=== PATIENT | male | born 1960 | race Caucasian/White ===

== ENCOUNTER 2017-11-29 14:17 | Emergency (ER) | payer OTHER ==
[2017-11-29 15:45] LABS: ALT 37 U/L (21-72); AST 26 U/L (17-59); Albumin 4.3 g/dL (3.5-5.0); Alkaline Phosphatase 84 U/L (38-126); Anion Gap 13 mmol/L; Basophils # (A) 0.1 k/uL (0-0.2); Basophils % (A) 1 %; Blood Urea Nitrogen 20 mg/dL (9-20); Calcium 10.2 mg/dL (8.4-10.2); Carbon Dioxide 23 mmol/L (22-30); Chloride 106 mmol/L (98-107); Eosinophils # (A) 0.3 k/uL (0-0.7); Eosinophils % (A) 3 %; Glucose 106 mg/dL (74-99); HGB 14.8 gm/dL (13.0-17.5); Lymphocytes # (A) 1.2 k/uL (1.0-4.8); Lymphocytes % (A) 12 %; MCH 29.6 pg (25.0-35.0); MCHC 32.9 g/dL (31.0-37.0); MCV 89.9 fL (80.0-100.0); Monocytes # (A) 0.5 k/uL (0-1.0); Monocytes % (A) 5 %; Neutrophils # (A) 8.1 k/uL (1.3-7.7); Neutrophils % (A) 79 %; Platelet Count 317 k/uL (150-450); RBC 5.01 m/uL (4.30-5.90); RDW 13.5 % (11.5-15.5); Sodium 142 mmol/L (137-145); Total Bilirubin 0.2 mg/dL (0.2-1.3); Total Protein 7.1 g/dL (6.3-8.2); WBC 10.2 k/uL (3.8-10.6)
[2017-11-29 15:46] LABS: Prothrombin Time 9.8 sec (9.0-12.0)
[2017-11-29 15:54] LABS: Creatine Kinase 135 U/L (55-170)
[2017-11-29 16:02] LABS: Partial Thromboplastin Time 20.9 sec (22.0-30.0)
[2017-11-29 16:04] VITALS: RESP 18
--- NOTE | 2017-11-29 16:09 | XR ---
EXAMINATION TYPE: XR chest 2V DATE OF EXAM: 11/29/2017 COMPARISON: None HISTORY: 57-year-old male difficulty breathing TECHNIQUE: PA and lateral views FINDINGS: Heart normal size. Mild elongation of the thoracic aorta. Pulmonary vasculature within normal limits. Stringy atelectasis in the lower lungs. No consolidation or pleural effusion. IMPRESSION: No acute cardiopulmonary process.
[2017-11-29 16:24] LABS: Creatine Kinase MB 1.8 ng/mL (0.0-2.4); Troponin I <0.012 ng/mL (0.000-0.034)
--- NOTE | 2017-11-29 16:28 | ED ---
SOB HPI - General Source: patient Mode of arrival: wheelchair Limitations: no limitations <Mark Pat - Last Filed: 11/29/17 17:39> <Jonathan Farias - Last Filed: 11/29/17 19:36> - General Chief Complaint: Shortness of Breath Stated Complaint: Chest Pain Time Seen by Provider: 11/29/17 15:34 - History of Present Illness Initial Comments: This is a 57-year-old male with a history of smoking who recently quit August 2017 who presents emergency department for shortness of breath for the last couple of weeks. He states that it is worse with exertion. It is better with rest. He states that he has associated lightheadedness when this happens. He denies any chest pains. Denies any cough. He states he just feels very "woozy oh. He states he also feels very anxious about this. He states that he used to be old oh walk and not get short of breath however over the last 2 weeks is been very significant. He does admit to feeling some numbness and tingling in his left leg however did not notice any swelling there. He states he does sit for multiple hours a day in his chair at home. He denies any fevers or chills. No chest pain at all. No other acute complaints. (Mark Pat) - Related Data Home Medications Medication Instructions Recorded Confirmed Esomeprazole Magnesium [NexIUM 20 mg PO Q48H 11/29/17 11/29/17 24Hr] Previous Rx's Medication Instructions Recorded Albuterol Inhaler [Ventolin Hfa 1 - 2 puff INHALATION Q6HR PRN #1 11/29/17 Inhaler] inhaler predniSONE 50 mg PO DAILY #5 tab 11/29/17 Allergies Allergy/AdvReac Type Severity Reaction Status Date / Time No Known Allergies Allergy Verified 11/29/17 16:47 Review of Systems ROS Other: All systems not noted in ROS Statement are negative. <Mark Pat - Last Filed: 11/29/17 17:39> ROS Other: All systems not noted in ROS Statement are negative. <Jonathan Farias - Last Filed: 11/29/17 19:36> ROS Statement: Those systems with pertinent positive or pertinent negative responses have been documented in the HPI. Past Medical History Past Medical History: GERD/Reflux Additional Past Medical History / Comment(s): "white coat syndrome" History of Any Multi-Drug Resistant Organisms: None Reported Past Surgical History: No Surgical Hx Reported Past Psychological History: Anxiety Smoking Status: Former smoker Past Alcohol Use History: None Reported Past Drug Use History: Marijuana <Mark Pat - Last Filed: 11/29/17 17:39> General Exam Limitations: no limitations <Mark Pat - Last Filed: 11/29/17 17:39> <Jonathan Farias - Last Filed: 11/29/17 19:36> - General Exam Comments Initial Comments: Constitutional: Awake alert Appears comfortable Head: Normocephalic atraumatic Eyes: no conjunctival injection No scleral icterus EOMI Neck: No JVD Supple Heart: Regular rate rhythm normal S1-S2 no murmurs Lungs: Clear to auscultation bilaterally No wheezing No rales Abdomen: Soft nondistended nontender Extremities: Non edematous, left leg seems slightly more swollen than the right and has a little bit of warmth to it without erythema DP pulses intact Radial pulses intact Neuro: A&Ox3 No focal neurologic deficits Psych: Appropriate mood and affect (Mark Pat) Course <Mark Pat - Last Filed: 11/29/17 17:39> <Jonathan Farias - Last Filed: 11/29/17 19:36> Vital Signs 11/29/17 11/29/17 11/29/17 14:25 16:02 17:31 Temperature 97.9 F 98.7 F Pulse Rate 102 H 90 82 Respiratory 20 18 18 Rate Blood Pressure 151/88 146/83 150/91 O2 Sat by Pulse 97 97 95 Oximetry 11/29/17 19:00 Temperature 98.2 F Pulse Rate 67 Respiratory 18 Rate Blood Pressure 152/97 O2 Sat by Pulse 95 Oximetry - Reevaluation(s) Reevaluation #1: 11/29/17 16:30 I ambulated the patient around the department and he dropped his oxygen saturation to 92% however did not go lower. Upon rest and return back up to 97 or 98% (Mark Pat) Reevaluation #2: 11/29/17 16:31 EKG showing normal sinus rhythm. 99. No abnormal ST segment changes or T-wave inversions. QTC is 441. Other intervals normal. No ectopy. (Mark Pat) Medical Decision Making - Lab Data Result diagrams: 11/29/17 15:26 11/29/17 15:26 <Mark Pat - Last Filed: 11/29/17 17:39> - Lab Data Result diagrams: 11/29/17 15:26 11/29/17 15:26 - Radiology Data Radiology results: report reviewed (I did review the imaging and report no acute findings.), image reviewed <Jnoathan Farias - Last Filed: 11/29/17 19:36> - Medical Decision Making Patient is feeling better at this time I did discuss findings with him and his patient will be discharged the presentation is consistent with a COPD exacerbation he had just quit smoking recently he does work in a machine shop. ( Jonathan Farias) - Lab Data Lab Results 11/29/17 11/29/17 11/29/17 Range/Units 15:26 15:26 15:26 WBC 10.2 (3.8-10.6) k/uL RBC 5.01 (4.30-5.90) m/uL Hgb 14.8 (13.0-17.5) gm/dL Hct 45.0 (39.0-53.0) % MCV 89.9 (80.0-100.0) fL MCH 29.6 (25.0-35.0) pg MCHC 32.9 (31.0-37.0) g/dL RDW 13.5 (11.5-15.5) % Plt Count 317 (150-450) k/uL Neutrophils % 79 % Lymphocytes % 12 % Monocytes % 5 % Eosinophils % 3 % Basophils % 1 % Neutrophils # 8.1 H (1.3-7.7) k/uL Lymphocytes # 1.2 (1.0-4.8) k/uL Monocytes # 0.5 (0-1.0) k/uL Eosinophils # 0.3 (0-0.7) k/uL Basophils # 0.1 (0-0.2) k/uL PT (9.0-12.0) sec INR (<1.2) APTT (22.0-30.0) sec D-Dimer (<0.60) mg/L FEU Sodium 142 (137-145) mmol/L Potassium 4.0 (3.5-5.1) mmol/L Chloride 106 (98-107) mmol/L Carbon Dioxide 23 (22-30) mmol/L Anion Gap 13 mmol/L BUN 20 (9-20) mg/dL Creatinine 0.88 (0.66-1.25) mg/dL Est GFR (MDRD) Af Amer >60 (>60 ml/min/1.73 sqM) Est GFR (MDRD) Non-Af >60 (>60 ml/min/1.73 sqM) Glucose 106 H (74-99) mg/dL Calcium 10.2 (8.4-10.2) mg/dL Total Bilirubin 0.2 (0.2-1.3) mg/dL AST 26 (17-59) U/L ALT 37 (21-72) U/L Alkaline Phosphatase 84 (38-126) U/L Total Creatine Kinase 135 (55-170) U/L CK-MB (CK-2) 1.8 (0.0-2.4) ng/mL CK-MB (CK-2) Rel Index 1.3 Troponin I <0.012 (0.000-0.034) ng/mL NT-Pro-B Natriuret Pep pg/mL Total Protein 7.1 (6.3-8.2) g/dL Albumin 4.3 (3.5-5.0) g/dL 11/29/17 11/29/17 11/29/17 Range/Units 15:26 15:26 15:26 WBC (3.8-10.6) k/uL RBC (4.30-5.90) m/uL Hgb (13.0-17.5) gm/dL Hct (39.0-53.0) % MCV (80.0-100.0) fL MCH (25.0-35.0) pg MCHC (31.0-37.0) g/dL RDW (11.5-15.5) % Plt Count (150-450) k/uL Neutrophils % % Lymphocytes % % Monocytes % % Eosinophils % % Basophils % % Neutrophils # (1.3-7.7) k/uL Lymphocytes # (1.0-4.8) k/uL Monocytes # (0-1.0) k/uL Eosinophils # (0-0.7) k/uL Basophils # (0-0.2) k/uL PT 9.8 (9.0-12.0) sec INR 1.0 (<1.2) APTT 20.9 L (22.0-30.0) sec D-Dimer 0.76 H (<0.60) mg/L FEU Sodium (137-145) mmol/L Potassium (3.5-5.1) mmol/L Chloride (98-107) mmol/L Carbon Dioxide (22-30) mmol/L Anion Gap mmol/L BUN (9-20) mg/dL Creatinine (0.66-1.25) mg/dL Est GFR (MDRD) Af Amer (>60 ml/min/1.73 sqM) Est GFR (MDRD) Non-Af (>60 ml/min/1.73 sqM) Glucose (74-99) mg/dL Calcium (8.4-10.2) mg/dL Total Bilirubin (0.2-1.3) mg/dL AST (17-59) U/L ALT (21-72) U/L Alkaline Phosphatase (38-126) U/L Total Creatine Kinase (55-170) U/L CK-MB (CK-2) (0.0-2.4) ng/mL CK-MB (CK-2) Rel Index Troponin I (0.000-0.034) ng/mL NT-Pro-B Natriuret Pep 33 pg/mL Total Protein (6.3-8.2) g/dL Albumin (3.5-5.0) g/dL Disposition <Mark Pat - Last Filed: 11/29/17 17:39> <Jonathan Farias - Last Filed: 11/29/17 19:36> Clinical Impression: Shortness of breath, Acute exacerbation of chronic obstructive airways disease Disposition: HOME SELF-CARE Condition: Stable Instructions: Dyspnea (ED) Prescriptions: Albuterol Inhaler [Ventolin Hfa Inhaler] 1 - 2 puff INHALATION Q6HR PRN #1 inhaler PRN Reason: Shortness Of Breath predniSONE 50 mg PO DAILY #5 tab Referrals: None,Stated [Primary Care Provider] - 1-2 days Mert Hernandez DO [Doctor of Osteopathic Medicine] - 1-2 days
[2017-11-29] MEDS ORDERED: RX INFO: IV CONTRAST WAS GIVEN 1 EACH MISC MISCELLANE PRN (16:43)
--- NOTE | 2017-11-29 16:50 | US ---
EXAMINATION TYPE: US venous doppler duplex LE BI DATE OF EXAM: 11/29/2017 4:42 PM COMPARISON: NONE CLINICAL HISTORY: Pain. SIDE PERFORMED: bilateral TECHNIQUE: The lower extremity deep venous system is examined utilizing real time linear array sonog keo with graded compression, doppler sonography and color-flow sonography. VESSELS IMAGED: External Iliac Vein (EIV) Common Femoral Vein Deep Femoral Vein Greater Saphenous Vein * Femoral Vein Popliteal Vein Small Saphenous Vein * Proximal Calf Veins (* superficial vessels) Right Leg: Negative for DVT Left Leg: Negative for DVT Grayscale, color doppler, spectral doppler imaging performed of the deep veins of the bilateral lower extremities. There is normal flow, compressibility, vascular waveforms. IMPRESSION: No ultrasound evidence for acute DVT in either lower extremity.
--- NOTE | 2017-11-29 19:04 | CT ---
EXAMINATION TYPE: CT angio chest DATE OF EXAM: 11/29/2017 6:30 PM COMPARISON: NONE HISTORY: Shortness of breath x several weeks. CT DLP: 656 mGycm Automated exposure control for dose reduction was used. CONTRAST: CTA scan of the thorax is performed with IV Contrast, patient injected with 100 mL of Omnipaque 350, pulmonary embolism protocol. . FINDINGS: There are 3-D post processed images. The lungs are clear of infiltrate. There is no evidence of a pulmonary mass. Heart size is normal. Th ere is no pleural effusion. There is no pericardial effusion. I see no filling defects in the pulmonary arteries. There is no evidence of aortic aneurysm or dissec tion. There is no pericardial effusion. There is no mediastinal adenopathy. The bony thorax is intact . There are bilateral 1.5 cm bronchial lymph nodes. IMPRESSION: NONSPECIFIC BRONCHIAL LYMPH NODES. NO EVIDENCE OF PULMONARY EMBOLISM.
[2017-11-29 19:06] VITALS: PULSE 67
[2017-11-29 19:53] VITALS: BP 149/63; TEMP 97
== END 2017-11-29 19:53 | disposition home or self-care (01) ==
LOC: EC 14:17
DX: J44.1 Chronic obstructive pulmonary disease with (acute) exacerbation (principal); K21.9 Gastro-esophageal reflux disease without esophagitis; Z87.891 Personal history of nicotine dependence; Z79.899 Other long term (current) drug therapy
CPT/HCPCS: 36415; 93005; 85379; 83880; 80053; 82550; 82553; 84484; 85025; 85610; 85730; 71046; 93970; 71275; 99285; Q9967

== ENCOUNTER 2018-05-03 16:11 | Emergency (ER) | payer OTHER ==
--- NOTE | 2018-05-03 16:37 | ED ---
General Adult HPI - General Chief complaint: Anxiety Stated complaint: chest pain Time Seen by Provider: 05/03/18 16:14 Source: EMS, RN notes reviewed, old records reviewed Mode of arrival: EMS Limitations: no limitations - History of Present Illness Initial comments: 58 yo male presents for evaluation of chest pain and anxiety. Patient states that over the past 4 days he has had left-sided chest pain, he's been lightheaded, and he has had some diaphoresis. He states his symptoms have been worse with exertion. He has no known history of coronary artery disease. He has been attributing his symptoms to anxiety which is dull with for the past 6 months. He did call his physician who recommended taking 2 of his antianxiety medication doses. Patient's are concerning for CAD. He has had no cardiac workup in the past. He is a current smoker. Patient reported shortness of breath with this episode as well. No cough no fever. - Related Data Home Medications Medication Instructions Recorded Confirmed Esomeprazole Magnesium [NexIUM 20 mg PO Q48H 11/29/17 05/03/18 24Hr] Aspirin [Adult Low Dose Aspirin EC] 81 mg PO ONCE 05/03/18 05/03/18 Sertraline [Zoloft] 25 mg PO DAILY 05/03/18 05/03/18 Allergies Allergy/AdvReac Type Severity Reaction Status Date / Time No Known Allergies Allergy Verified 05/03/18 16:54 Review of Systems ROS Statement: Those systems with pertinent positive or pertinent negative responses have been documented in the HPI. ROS Other: All systems not noted in ROS Statement are negative. Past Medical History Past Medical History: GERD/Reflux Additional Past Medical History / Comment(s): "white coat syndrome" History of Any Multi-Drug Resistant Organisms: None Reported Past Surgical History: No Surgical Hx Reported Past Psychological History: Anxiety Smoking Status: Current some day smoker Past Alcohol Use History: None Reported Past Drug Use History: Marijuana General Exam Limitations: no limitations General appearance: alert, in no apparent distress Head exam: Present: atraumatic, normocephalic Eye exam: Present: normal appearance, PERRL Neck exam: Present: normal inspection. Absent: tenderness, meningismus Respiratory exam: Present: normal lung sounds bilaterally. Absent: respiratory distress, wheezes Cardiovascular Exam: Present: regular rate, normal rhythm GI/Abdominal exam: Present: soft. Absent: distended, tenderness Extremities exam: Present: normal inspection, normal capillary refill. Absent: pedal edema, calf tenderness Neurological exam: Present: alert, oriented X3 Psychiatric exam: Present: normal affect, normal mood Skin exam: Present: warm, intact, diaphoretic Course Vital Signs 05/03/18 16:15 Temperature 98.0 F Pulse Rate 81 Respiratory 18 Rate Blood Pressure 145/86 O2 Sat by Pulse 97 Oximetry EKG Findings - EKG Comments: EKG Findings:: EKG: Normal sinus rhythm, nonspecific T-wave abnormality, rate of 75, MN interval 154, QRS duration 90, QTC [address] segment elevation or depression Medical Decision Making - Medical Decision Making 58 yo male presenting with what he believes is anxiety, is having some left- sided chest pain as well as shortness of breath and diaphoresis. Patient's history is concerning for CAD. Initial workup reveals normal blood cell count, stable hemoglobin, d-dimer is elevated at 0.73, troponin is negative. Chest x- ray negative for any acute cardiopulmonary disease, given the elevated d-dimer, CT angiography is obtained this is negative for primary embolism or dissection. I would prefer the patient stay for serial cardiac enzymes and cardiology consultation, he declines prefers outpatient follow-up. He does have an appointment in the morning with his primary care physician. Case is discussed with Dr. Soriano who is covering for Dr. Nunez, given that the patient is eager for discharge and has an appointment tomorrow his trop Will be repeated. Patient's care is signed out awaiting second troponin. If troponin is negative patient will be discharged home with outpatient follow-up tomorrow morning, if troponin is positive patient will be admitted for further cardiology evaluation and treatment. - Lab Data Result diagrams: 05/03/18 16:20 05/03/18 16:20 Lab Results 05/03/18 05/03/18 05/03/18 Range/Units 16:20 16:20 16:20 WBC 7.1 (3.8-10.6) k/uL RBC 5.40 (4.30-5.90) m/uL Hgb 15.3 (13.0-17.5) gm/dL Hct 47.0 (39.0-53.0) % MCV 87.1 (80.0-100.0) fL MCH 28.4 (25.0-35.0) pg MCHC 32.6 (31.0-37.0) g/dL RDW 13.6 (11.5-15.5) % Plt Count 351 (150-450) k/uL Neutrophils % 58 % Lymphocytes % 28 % Monocytes % 6 % Eosinophils % 4 % Basophils % 1 % Neutrophils # 4.1 (1.3-7.7) k/uL Lymphocytes # 2.0 (1.0-4.8) k/uL Monocytes # 0.4 (0-1.0) k/uL Eosinophils # 0.3 (0-0.7) k/uL Basophils # 0.1 (0-0.2) k/uL PT (9.0-12.0) sec INR (<1.2) APTT (22.0-30.0) sec D-Dimer (<0.60) mg/L FEU Sodium 141 (137-145) mmol/L Potassium 4.1 (3.5-5.1) mmol/L Chloride 111 H (98-107) mmol/L Carbon Dioxide 19 L (22-30) mmol/L Anion Gap 11 mmol/L BUN 17 (9-20) mg/dL Creatinine 0.90 (0.66-1.25) mg/dL Est GFR (CKD-EPI)AfAm >90 (>60 ml/min/1.73 sqM) Est GFR (CKD-EPI)NonAf >90 (>60 ml/min/1.73 sqM) Glucose 105 H (74-99) mg/dL Calcium 9.9 (8.4-10.2) mg/dL Magnesium 2.1 (1.6-2.3) mg/dL Total Bilirubin 0.1 L (0.2-1.3) mg/dL AST 28 (17-59) U/L ALT 47 (21-72) U/L Alkaline Phosphatase 103 (38-126) U/L Total Creatine Kinase 108 (55-170) U/L CK-MB (CK-2) 0.6 (0.0-2.4) ng/mL CK-MB (CK-2) Rel Index 0.6 Troponin I <0.012 (0.000-0.034) ng/mL NT-Pro-B Natriuret Pep pg/mL Total Protein 6.9 (6.3-8.2) g/dL Albumin 4.2 (3.5-5.0) g/dL 05/03/18 05/03/18 05/03/18 Range/Units 16:20 16:20 16:20 WBC (3.8-10.6) k/uL RBC (4.30-5.90) m/uL Hgb (13.0-17.5) gm/dL Hct (39.0-53.0) % MCV (80.0-100.0) fL MCH (25.0-35.0) pg MCHC (31.0-37.0) g/dL RDW (11.5-15.5) % Plt Count (150-450) k/uL Neutrophils % % Lymphocytes % % Monocytes % % Eosinophils % % Basophils % % Neutrophils # (1.3-7.7) k/uL Lymphocytes # (1.0-4.8) k/uL Monocytes # (0-1.0) k/uL Eosinophils # (0-0.7) k/uL Basophils # (0-0.2) k/uL PT 10.9 (9.0-12.0) sec INR 1.1 (<1.2) APTT 25.0 (22.0-30.0) sec D-Dimer 0.73 H (<0.60) mg/L FEU Sodium (137-145) mmol/L Potassium (3.5-5.1) mmol/L Chloride (98-107) mmol/L Carbon Dioxide (22-30) mmol/L Anion Gap mmol/L BUN (9-20) mg/dL Creatinine (0.66-1.25) mg/dL Est GFR (CKD-EPI)AfAm (>60 ml/min/1.73 sqM) Est GFR (CKD-EPI)NonAf (>60 ml/min/1.73 sqM) Glucose (74-99) mg/dL Calcium (8.4-10.2) mg/dL Magnesium (1.6-2.3) mg/dL Total Bilirubin (0.2-1.3) mg/dL AST (17-59) U/L ALT (21-72) U/L Alkaline Phosphatase (38-126) U/L Total Creatine Kinase (55-170) U/L CK-MB (CK-2) (0.0-2.4) ng/mL CK-MB (CK-2) Rel Index Troponin I (0.000-0.034) ng/mL NT-Pro-B Natriuret Pep 30 pg/mL Total Protein (6.3-8.2) g/dL Albumin (3.5-5.0) g/dL Disposition Clinical Impression: Chest pain Condition: Good Instructions: Chest Pain (ED) Is patient prescribed a controlled substance at d/c from ED?: No Referrals: Marcial Nunez Jr, [Primary Care Provider] - 1-2 days Time of Disposition: 20:44
[2018-05-03 16:46] LABS: Basophils # (A) 0.1 k/uL (0-0.2); Basophils % (A) 1 %; Eosinophils # (A) 0.3 k/uL (0-0.7); Eosinophils % (A) 4 %; HGB 15.3 gm/dL (13.0-17.5); Lymphocytes % (A) 28 %; MCH 28.4 pg (25.0-35.0); MCHC 32.6 g/dL (31.0-37.0); MCV 87.1 fL (80.0-100.0); Mean Platelet Volume 6.4; Monocytes # (A) 0.4 k/uL (0-1.0); Monocytes % (A) 6 %; Neutrophils # (A) 4.1 k/uL (1.3-7.7); Neutrophils % (A) 58 %; Platelet Count 351 k/uL (150-450); RDW 13.6 % (11.5-15.5); WBC 7.1 k/uL (3.8-10.6)
[2018-05-03 16:56] LABS: INR 1.1 (<1.2); Prothrombin Time 10.9 sec (9.0-12.0)
--- NOTE | 2018-05-03 16:59 | XR ---
EXAMINATION TYPE: XR chest 2V DATE OF EXAM: 05/03/2018 COMPARISON: 11/29/2017 HISTORY: Chest pain TECHNIQUE: Frontal and lateral views of the chest are obtained. FINDINGS: Heart and mediastinum are normal. Lungs are clear. Diaphragm is normal. Bony thorax appear s normal. There are chest leads. IMPRESSION: Normal chest. No change.
[2018-05-03 17:01] LABS: ALT 47 U/L (21-72); AST 28 U/L (17-59); Albumin 4.2 g/dL (3.5-5.0); Alkaline Phosphatase 103 U/L (38-126); Anion Gap 11 mmol/L; Blood Urea Nitrogen 17 mg/dL (9-20); Calcium 9.9 mg/dL (8.4-10.2); Carbon Dioxide 19 mmol/L (22-30); Chloride 111 mmol/L (98-107); Glucose 105 mg/dL (74-99); Magnesium 2.1 mg/dL (1.6-2.3); Potassium 4.1 mmol/L (3.5-5.1); Sodium 141 mmol/L (137-145); Total Bilirubin 0.1 mg/dL (0.2-1.3); Total Protein 6.9 g/dL (6.3-8.2)
[2018-05-03 17:25] LABS: Creatine Kinase 108 U/L (55-170)
[2018-05-03 17:38] LABS: Creatine Kinase MB 0.6 ng/mL (0.0-2.4); Troponin I <0.012 ng/mL (0.000-0.034)
--- NOTE | 2018-05-03 20:01 | CT ---
EXAMINATION TYPE: CT angio chest DATE OF EXAM: 05/03/2018 7:44 PM COMPARISON: 11/29/2017 HISTORY: chest pain, SOB CT DLP: 353.9 mGycm Automated exposure control for dose reduction was used. CONTRAST: CTA scan of the thorax is performed with IV Contrast, patient injected with 75 mL of Isovue 370, pulm onary embolism protocol. There are 3-D post processed images.. FINDINGS: There is small linear density at the right posterior lung base. There is no pleural effusion. Lungs a re clear of consolidation. Heart size is normal. There is no pericardial effusion. Thoracic aorta appears normal without evidence of aneurysm or dissection. There is no mediastinal mirna nopathy. There are no hilar masses. There is normal contrast opacification of the pulmonary arteries. I see no filling defects. The bony thorax appears intact. IMPRESSION: NO EVIDENCE OF PULMONARY EMBOLISM. STABLE BRONCHIAL LYMPH NODES COMPARED TO OLD EXAM. THERE IS NEW CA NIMAL SUBSEGMENTAL ATELECTASIS AT THE RIGHT LUNG BASE COMPARED TO OLD EXAM.
[2018-05-03] MEDS ORDERED: ASPIRIN 325 MG TAB PO STA (20:05)
[2018-05-03 21:52] VITALS: BP 156/91; PULSE 89; RESP 20; TEMP 98.1
== END 2018-05-03 21:52 ==
LOC: EC 16:11
DX: R07.9 Chest pain, unspecified (principal); R06.02 Shortness of breath; R61 Generalized hyperhidrosis; K21.9 Gastro-esophageal reflux disease without esophagitis; F41.9 Anxiety disorder, unspecified; F17.200 Nicotine dependence, unspecified, uncomplicated; Z79.82 Long term (current) use of aspirin; Z79.899 Other long term (current) drug therapy
CPT/HCPCS: 36415; 93005; 85379; 83880; 80053; 82550; 82553; 83735; 84484; 85025; 85610; 85730; 71046; 71275; 99285; Q9967

== ENCOUNTER → 2018-05-19 | Outpatient (CLI) | payer OTHER ==
--- NOTE | 2018-05-19 13:08 | ECHOS ---
STRESS ECHOCARDIOGRAM DATE OF SERVICE: 05/19/2018 INDICATION OF THE STUDY: Chest pain. MEDICATIONS: Zoloft. BASELINE HEART RATE: 68 BASELINE BLOOD PRESSURE: 141/59 MAXIMUM HEART RATE: 144 MAXIMUM BLOOD PRESSURE: 189/92 85% MPHR: 159 100% MPHR: 164 METS: 8.0 MAXIMUM STAGE REACHED: II TOTAL EXERCISE TIME: 7 minutes and 6 seconds. CLINICAL INFORMATION: STRESS DATA: Pretesting physical examination showed a heart rate of 68, pressure is 141/59 mmHg. Baseline EKG showed sinus mechanism. The patient exercised on the treadmill according to Rolando protocol for a total of 67 minutes and 6 seconds and achieved 8.0 METs. Max heart rate was 144, which is about 89% of maximum predicted heart rate. Maximum blood pressure was 189/92 mmHg. Clinically the patient did not have any symptoms of chest pain or chest discomfort but he developed some shortness of breath in response to exercise. The EKG did not show any significant ST or T-wave abnormalities concerning for ischemia. ECHOCARDIOGRAM IMAGES: On echocardiogram images from parasternal long axis view, parasternal short axis view, apical 4 chamber and apical 2 chamber view were obtained as the baseline images, at the peak of the heart rate as well as on recovery. The echocardiogram images did not show any evidence of wall motion abnormalities concerning for ischemia. CONCLUSION: 1. Good exercise tolerance. 2. Normal EKG in response to exercise. 3. Normal echocardiogram in response to exercise. MMODL / IJN: [id number] /
== END | disposition home or self-care (01) ==
LOC: RADNMMAIN 08:58
PROVIDERS: ATTEND Family Medicine
DX: Z09 Encounter for follow-up examination after completed treatment for conditions other than malignant neoplasm (principal); Z86.79 Personal history of other diseases of the circulatory system; Z82.49 Family history of ischemic heart disease and other diseases of the circulatory system
CPT/HCPCS: 93351